=== PATIENT | male | born 1965 | race Caucasian/White ===

== ENCOUNTER 2023-09-25 17:51 | Outpatient (RCR) | payer BC, SELFPAY | END 2023-09-25 23:59 | disposition home or self-care (01) | LOC: RPT 17:51 | PROVIDERS: ATTENDING PHYSICIAN Internal Medicine Gastroenterology; FAMILY PHYSICIAN Physician Assistant Medical | DX: R15.9 Full incontinence of feces (principal); R15.2 Fecal urgency; M62.89 Other specified disorders of muscle; R10.2 Pelvic and perineal pain; Z73.6 Limitation of activities due to disability | CPT/HCPCS: 97163; 97530 ==

== ENCOUNTER → 2023-10-03 09:36 | Outpatient (REF) | payer BC, SELFPAY | LOC: HWRAD 09:36 | PROVIDERS: ATTENDING PHYSICIAN Nurse Practitioner Adult Health; FAMILY PHYSICIAN Physician Assistant Medical | DX: C20 Malignant neoplasm of rectum (principal); R93.2 Abnormal findings on diagnostic imaging of liver and biliary tract | CPT/HCPCS: 71270; 74178; Q9967 ==

== ENCOUNTER 2023-10-25 07:47 | Outpatient (RCR) | payer BC, SELFPAY | END 2023-10-25 23:59 | disposition home or self-care (01) | LOC: RPT 07:47 | PROVIDERS: ATTENDING PHYSICIAN Internal Medicine Gastroenterology; FAMILY PHYSICIAN Physician Assistant Medical | DX: R15.9 Full incontinence of feces (principal); R15.2 Fecal urgency; M62.89 Other specified disorders of muscle; R10.2 Pelvic and perineal pain; Z73.6 Limitation of activities due to disability; C20 Malignant neoplasm of rectum; Z98.0 Intestinal bypass and anastomosis status | CPT/HCPCS: 97110; 97140; 97530 ==

== ENCOUNTER 2023-10-28 06:09 | Day surgery (SDC) | payer BC, SELFPAY ==
[2023-10-17 13:04] VITALS: BMI 26.8
[2023-10-17 14:20] LABS: INR 0.94; PT 12.6 Sec (11.4-14.6)
[2023-10-28] VITALS (8 sets, daily range): BP systolic 117–132; BP diastolic 74–93; BMI 26.5
[2023-10-28 07:03] LABS: Glucose - Point of Care 188 mg/dl (70-99)
[2023-10-28 09:44] LABS: Glucose - Point of Care 201 mg/dl (70-99)
== END 2023-10-28 10:59 | disposition home or self-care (01) ==
LOC: SDS 06:09
PROVIDERS: ATTENDING PHYSICIAN Internal Medicine Critical Care Medicine; FAMILY PHYSICIAN Physician Assistant Medical; OTHER PHYSICIAN Internal Medicine Cardiovascular Disease; OTHER PHYSICIAN Internal Medicine Hematology & Oncology
DX: C78.02 Secondary malignant neoplasm of left lung (principal); C78.01 Secondary malignant neoplasm of right lung; C19 Malignant neoplasm of rectosigmoid junction; R59.0 Localized enlarged lymph nodes
CPT/HCPCS: 31629; 31628; 31624; 31623; 31627; 31654; 88172; 88173; 88305; 36415; 71045; 76000; 82962; 85610; 85730; 88112; 88177; 88333; 88341; 88342; 94640; C1887

== ENCOUNTER → 2023-11-11 10:19 | Outpatient (REF) | payer BC, SELFPAY ==
[2023-11-11 10:37] VITALS: BP 122/91; BP_SYST 85
[2023-11-11] MEDS: ANCEF 10 IV (11:03)
[2023-11-11 12:20] VITALS: BP 131/90; BP_SYST 76
[2023-11-11 12:35] VITALS: BP 139/89
== END ==
LOC: RADI 10:19
PROVIDERS: ATTENDING PHYSICIAN Internal Medicine Hematology & Oncology; FAMILY PHYSICIAN Physician Assistant Medical
DX: C20 Malignant neoplasm of rectum (principal)
CPT/HCPCS: 36561; 76937; 77001; 99152; 99153

== ENCOUNTER 2023-11-25 07:30 | Outpatient (RCR) | payer BC, SELFPAY | END 2023-11-25 23:59 | disposition home or self-care (01) | LOC: RPT 07:30 | PROVIDERS: ATTENDING PHYSICIAN Internal Medicine Gastroenterology; FAMILY PHYSICIAN Physician Assistant Medical | DX: R15.9 Full incontinence of feces (principal); R15.2 Fecal urgency; M62.89 Other specified disorders of muscle; R10.2 Pelvic and perineal pain; Z73.6 Limitation of activities due to disability | CPT/HCPCS: 97110; 97112; 97140; 97530 ==

== ENCOUNTER → 2023-12-10 15:36 | Outpatient (REF) | payer BC, SELFPAY ==
[2023-12-10 14:52] LABS: % Basophils 0.6 % (0-2); % Eosinophils 4.7 % (0-6); % Immature Granulocytes 0.3 % (0-0.5); % Lymphocytes 40.3 % (20.5-51.1); % Monocytes 15.7 % (1.7-9.3); % Neutrophils 38.4 % (42.2-75.2); Absolute Eosinophils 0.2 10^3/uL (0-0.7); Absolute Lymphocytes 1.5 10^3/uL (1.2-3.4); Absolute Monocytes 0.6 10^3/uL (0.1-0.6); Absolute Neutrophils 1.4 10^3/uL (1.4-6.5); Hemoglobin 15.3 g/dL (13.0-18.0); Mean Corp Hgb Conc. 35.6 g/dL (33.0-37.0); Mean Corpuscular Hgb 30.3 pg (27.0-31.0); Mean Corpuscular Volume 85.1 fL (80.0-94.0); Mean Platelet Volume 8.9 fL (7.4-10.4); Platelet Count 124 10^3/uL (130-400); Red Blood Cell Count 5.05 10^6/uL (4.70-6.10); Red Cell Dist. Width 13.6 % (11.5-14.5); White Blood Cell Count 3.6 10^3/uL (4.8-10.8)
== END ==
LOC: OIDL 15:36
PROVIDERS: ATTENDING PHYSICIAN Internal Medicine Hematology & Oncology
DX: C20 Malignant neoplasm of rectum (principal)
CPT/HCPCS: 85025

== ENCOUNTER → 2023-12-17 09:34 | Outpatient (REF) | payer BC, SELFPAY ==
[2023-12-17 11:06] LABS: Protein/creatinine Ratio 0.1; Urine Protein 7 mg/dl
== END ==
LOC: OIDL 09:34
PROVIDERS: ATTENDING PHYSICIAN Internal Medicine Hematology & Oncology
DX: C20 Malignant neoplasm of rectum (principal)
CPT/HCPCS: 82570; 84156

== ENCOUNTER 2023-12-23 07:47 | Outpatient (RCR) | payer BC, SELFPAY | END 2023-12-23 23:59 | disposition home or self-care (01) | LOC: RPT 07:47 | PROVIDERS: ATTENDING PHYSICIAN Internal Medicine Gastroenterology; FAMILY PHYSICIAN Physician Assistant Medical | DX: R15.9 Full incontinence of feces (principal); R15.2 Fecal urgency; M62.89 Other specified disorders of muscle; R10.2 Pelvic and perineal pain; Z73.6 Limitation of activities due to disability | CPT/HCPCS: 97110; 97140; 97530 ==

== ENCOUNTER 2024-01-31 06:47 | Outpatient (RCR) | payer BC, SELFPAY | END 2024-01-31 23:59 | disposition home or self-care (01) | LOC: RPT 06:47 | PROVIDERS: ATTENDING PHYSICIAN Internal Medicine Gastroenterology; FAMILY PHYSICIAN Physician Assistant Medical | DX: R15.9 Full incontinence of feces (principal); R15.2 Fecal urgency; M62.89 Other specified disorders of muscle; R10.2 Pelvic and perineal pain; Z73.6 Limitation of activities due to disability | CPT/HCPCS: 97110; 97140; 97530 ==

== ENCOUNTER → 2024-02-06 08:12 | Outpatient (REF) | payer BC, SELFPAY | LOC: RCS 08:12 | PROVIDERS: ATTENDING PHYSICIAN Internal Medicine Cardiovascular Disease; FAMILY PHYSICIAN Physician Assistant Medical | DX: I35.0 Nonrheumatic aortic (valve) stenosis (principal) | CPT/HCPCS: 93306 ==

== ENCOUNTER 2024-02-17 07:15 | Outpatient (RCR) | payer BC, SELFPAY | END 2024-02-17 23:59 | disposition home or self-care (01) | LOC: RPT 07:15 | PROVIDERS: ATTENDING PHYSICIAN Internal Medicine Gastroenterology; FAMILY PHYSICIAN Physician Assistant Medical | DX: R15.9 Full incontinence of feces (principal); R15.2 Fecal urgency; M62.89 Other specified disorders of muscle; R10.2 Pelvic and perineal pain; Z73.6 Limitation of activities due to disability | CPT/HCPCS: 97110; 97112; 97140; 97530 ==

== ENCOUNTER → 2024-03-16 14:22 | Outpatient (REF) | payer BC, SELFPAY ==
[2024-03-16 14:39] LABS: % Basophils 0.7 % (0-2); % Eosinophils 4.1 % (0-6); % Immature Granulocytes 0.2 % (0-0.5); % Lymphocytes 33.6 % (20.5-51.1); % Monocytes 11.5 % (1.7-9.3); % Neutrophils 49.9 % (42.2-75.2); Absolute Eosinophils 0.2 10^3/uL (0-0.7); Absolute Lymphocytes 1.5 10^3/uL (1.2-3.4); Absolute Monocytes 0.5 10^3/uL (0.1-0.6); Absolute Neutrophils 2.2 10^3/uL (1.4-6.5); Hematocrit 40.9 % (39.0-52.0); Hemoglobin 14.4 g/dL (13.0-18.0); Mean Corp Hgb Conc. 35.2 g/dL (33.0-37.0); Mean Corpuscular Hgb 31.2 pg (27.0-31.0); Mean Corpuscular Volume 88.5 fL (80.0-94.0); Nucleated Red Blood Cells % 0 % (-); Platelet Count 190 10^3/uL (130-400); Red Blood Cell Count 4.62 10^6/uL (4.70-6.10); Red Cell Dist. Width 12.7 % (11.5-14.5); White Blood Cell Count 4.3 10^3/uL (4.8-10.8)
[2024-03-16 14:56] LABS: ALT (SGPT) 59 U/L (0-50); AST (SGOT) 45 U/L (17-59); Albumin 4.7 g/dl (3.5-5.0); Alkaline Phosphatase 88 U/L (38-126); Blood Urea Nitrogen 16 mg/dl (9-20); Calcium 9.4 mg/dl (8.4-10.2); Carbon Dioxide 26 mmol/L (22-30); Glucose 186 mg/dl (70-99); Total Bilirubin 0.4 mg/dl (0.2-1.3); Total Protein 6.9 g/dl (6.3-8.2); eGFR > 60.00
[2024-03-16 15:04] LABS: Chloride 101 mmol/L (98-107); Potassium 4.2 mmol/L (3.5-5.1); Sodium 139 mmol/L (135-145)
== END ==
LOC: REG 14:22
PROVIDERS: ATTENDING PHYSICIAN Internal Medicine Hematology & Oncology; FAMILY PHYSICIAN Physician Assistant Medical
DX: C20 Malignant neoplasm of rectum (principal); C78.02 Secondary malignant neoplasm of left lung; C78.7 Secondary malignant neoplasm of liver and intrahepatic bile duct; C78.01 Secondary malignant neoplasm of right lung
CPT/HCPCS: 36415; 80053; 85025

== ENCOUNTER 2024-03-23 08:30 | Outpatient (RCR) | payer BC, SELFPAY | END 2024-03-23 10:24 | disposition home or self-care (01) | LOC: RPT 08:30 | PROVIDERS: ATTENDING PHYSICIAN Internal Medicine Gastroenterology; FAMILY PHYSICIAN Physician Assistant Medical | DX: R15.9 Full incontinence of feces (principal); R15.2 Fecal urgency; M62.89 Other specified disorders of muscle; R10.2 Pelvic and perineal pain; Z73.6 Limitation of activities due to disability | CPT/HCPCS: 97110; 97112; 97140; 97530 ==

== ENCOUNTER → 2024-03-30 13:35 | Outpatient (REF) | payer BC, SELFPAY ==
[2024-03-30 13:57] LABS: % Basophils 0.2 % (0-2); % Eosinophils 3.6 % (0-6); % Immature Granulocytes 0.2 % (0-0.5); % Lymphocytes 27.6 % (20.5-51.1); % Monocytes 10.7 % (1.7-9.3); % Neutrophils 57.7 % (42.2-75.2); Absolute Eosinophils 0.2 10^3/uL (0-0.7); Absolute Lymphocytes 1.2 10^3/uL (1.2-3.4); Absolute Monocytes 0.5 10^3/uL (0.1-0.6); Absolute Neutrophils 2.5 10^3/uL (1.4-6.5); Hematocrit 43.1 % (39.0-52.0); Hemoglobin 15.1 g/dL (13.0-18.0); Mean Corpuscular Hgb 31.4 pg (27.0-31.0); Mean Corpuscular Volume 89.6 fL (80.0-94.0); Mean Platelet Volume 9.1 fL (7.4-10.4); Nucleated Red Blood Cells % 0 % (-); Platelet Count 191 10^3/uL (130-400); Red Blood Cell Count 4.81 10^6/uL (4.70-6.10); Red Cell Dist. Width 12.6 % (11.5-14.5); White Blood Cell Count 4.4 10^3/uL (4.8-10.8)
[2024-03-30 14:19] LABS: ALT (SGPT) 66 U/L (0-50); AST (SGOT) 49 U/L (17-59); Albumin 4.8 g/dl (3.5-5.0); Alkaline Phosphatase 89 U/L (38-126); Blood Urea Nitrogen 11 mg/dl (9-20); Calcium 9.6 mg/dl (8.4-10.2); Carbon Dioxide 26 mmol/L (22-30); Chloride 103 mmol/L (98-107); Glucose 91 mg/dl (70-99); Potassium 4.2 mmol/L (3.5-5.1); Sodium 139 mmol/L (135-145); Total Bilirubin 0.4 mg/dl (0.2-1.3); Total Protein 7.2 g/dl (6.3-8.2); eGFR > 60.00
== END ==
LOC: REG 13:35
PROVIDERS: ATTENDING PHYSICIAN Internal Medicine Hematology & Oncology; FAMILY PHYSICIAN Physician Assistant Medical
DX: C20 Malignant neoplasm of rectum (principal); C78.02 Secondary malignant neoplasm of left lung; C78.7 Secondary malignant neoplasm of liver and intrahepatic bile duct; C78.01 Secondary malignant neoplasm of right lung
CPT/HCPCS: 36415; 80053; 85025

== ENCOUNTER → 2024-04-27 11:21 | Outpatient (REF) | payer BC, SELFPAY ==
[2024-04-27 12:00] LABS: % Basophils 0.7 % (0-2); % Eosinophils 3.5 % (0-6); % Immature Granulocytes 0.2 % (0-0.5); % Lymphocytes 24.7 % (20.5-51.1); % Monocytes 10.9 % (1.7-9.3); Absolute Eosinophils 0.2 10^3/uL (0-0.7); Absolute Lymphocytes 1.1 10^3/uL (1.2-3.4); Absolute Monocytes 0.5 10^3/uL (0.1-0.6); Absolute Neutrophils 2.6 10^3/uL (1.4-6.5); Hematocrit 43.9 % (39.0-52.0); Hemoglobin 15.3 g/dL (13.0-18.0); Mean Corp Hgb Conc. 34.9 g/dL (33.0-37.0); Mean Corpuscular Hgb 30.9 pg (27.0-31.0); Mean Corpuscular Volume 88.7 fL (80.0-94.0); Mean Platelet Volume 9.2 fL (7.4-10.4); Nucleated Red Blood Cells % 0 % (-); Platelet Count 182 10^3/uL (130-400); Red Blood Cell Count 4.95 10^6/uL (4.70-6.10); Red Cell Dist. Width 12.6 % (11.5-14.5); White Blood Cell Count 4.3 10^3/uL (4.8-10.8)
[2024-04-27 13:02] LABS: Protein/creatinine Ratio 0.2; Urine Protein 9 mg/dl
[2024-04-27 13:36] LABS: ALT (SGPT) 71 U/L (0-50); AST (SGOT) 54 U/L (17-59); Albumin 4.9 g/dl (3.5-5.0); Alkaline Phosphatase 82 U/L (38-126); Blood Urea Nitrogen 16 mg/dl (9-20); Calcium 9.7 mg/dl (8.4-10.2); Carbon Dioxide 27 mmol/L (22-30); Chloride 100 mmol/L (98-107); Glucose 84 mg/dl (70-99); Potassium 4.5 mmol/L (3.5-5.1); Sodium 140 mmol/L (135-145); Total Bilirubin 0.5 mg/dl (0.2-1.3); Total Protein 7.2 g/dl (6.3-8.2); eGFR > 60.00
== END ==
LOC: REG 11:21
PROVIDERS: ATTENDING PHYSICIAN Internal Medicine Hematology & Oncology; FAMILY PHYSICIAN Physician Assistant Medical
DX: C20 Malignant neoplasm of rectum (principal); C78.02 Secondary malignant neoplasm of left lung; C78.7 Secondary malignant neoplasm of liver and intrahepatic bile duct; C78.01 Secondary malignant neoplasm of right lung
CPT/HCPCS: 36415; 80053; 82570; 84156; 85025

== ENCOUNTER → 2024-06-09 08:20 | Outpatient (REF) | payer BC, SELFPAY | LOC: HWRAD 08:20 | PROVIDERS: ATTENDING PHYSICIAN Internal Medicine Hematology & Oncology; FAMILY PHYSICIAN Physician Assistant Medical | DX: C20 Malignant neoplasm of rectum (principal); C78.02 Secondary malignant neoplasm of left lung; C78.7 Secondary malignant neoplasm of liver and intrahepatic bile duct; C78.01 Secondary malignant neoplasm of right lung | CPT/HCPCS: 71260; 74178; Q9967 ==

== ENCOUNTER → 2024-09-07 07:26 | Outpatient (REF) | payer BC, SELFPAY | LOC: RAD 07:26 | PROVIDERS: ATTENDING PHYSICIAN Internal Medicine Hematology & Oncology; FAMILY PHYSICIAN Physician Assistant Medical; OTHER PHYSICIAN Radiology Radiation Oncology | DX: C20 Malignant neoplasm of rectum (principal); C78.02 Secondary malignant neoplasm of left lung; C78.7 Secondary malignant neoplasm of liver and intrahepatic bile duct; C78.01 Secondary malignant neoplasm of right lung | CPT/HCPCS: 71260; 74178; Q9967 ==

== ENCOUNTER → 2025-05-24 07:28 | Outpatient (REF) | payer BC, SELFPAY ==
[2025-05-24 07:53] LABS: Hematocrit 41.6 % (39.0-52.0); Hemoglobin 14.0 g/dL (13.0-18.0); Mean Corp Hgb Conc. 33.7 g/dL (33.0-37.0); Mean Corpuscular Volume 87.2 fL (80.0-94.0); Nucleated Red Blood Cells % 0 % (-); Platelet Count 187 10^3/uL (130-400); Red Cell Dist. Width 13.4 % (11.5-14.5)
== END ==
LOC: REG 07:28
PROVIDERS: ATTENDING PHYSICIAN Internal Medicine Hematology & Oncology; FAMILY PHYSICIAN Physician Assistant Medical; REFERRING PHYSICIAN Internal Medicine Medical Oncology
DX: C20 Malignant neoplasm of rectum (principal); C78.02 Secondary malignant neoplasm of left lung; C78.7 Secondary malignant neoplasm of liver and intrahepatic bile duct; C78.01 Secondary malignant neoplasm of right lung
CPT/HCPCS: 36415; 85025

== ENCOUNTER → 2025-07-19 10:46 | Outpatient (REF) | payer BC, SELFPAY ==
[2025-07-19 11:32] LABS: ALT (SGPT) 54 U/L (0-50); AST (SGOT) 37 U/L (17-59); Albumin 4.8 g/dl (3.5-5.0); Alkaline Phosphatase 94 U/L (38-126); Blood Urea Nitrogen 19 mg/dl (9-20); Calcium 9.7 mg/dl (8.4-10.2); Carbon Dioxide 30 mmol/L (22-30); Chloride 100 mmol/L (98-107); Glucose 192 mg/dl (70-99); Potassium 4.9 mmol/L (3.5-5.1); Sodium 139 mmol/L (135-145); Total Protein 7.7 g/dl (6.3-8.2); eGFR > 60.00
== END ==
LOC: REG 10:46
PROVIDERS: ATTENDING PHYSICIAN Internal Medicine Hematology & Oncology; FAMILY PHYSICIAN Physician Assistant Medical
DX: C20 Malignant neoplasm of rectum (principal); C78.02 Secondary malignant neoplasm of left lung; C78.7 Secondary malignant neoplasm of liver and intrahepatic bile duct; C78.01 Secondary malignant neoplasm of right lung
CPT/HCPCS: 36415; 80053; 82570; 84156

== ENCOUNTER → 2025-07-30 13:11 | Outpatient (REF) | payer BC, SELFPAY ==
[2025-07-30 13:43] LABS: Hematocrit 45.5 % (39.0-52.0); Hemoglobin 15.0 g/dL (13.0-18.0); Mean Corp Hgb Conc. 33.0 g/dL (33.0-37.0); Mean Corpuscular Volume 88.7 fL (80.0-94.0); Nucleated Red Blood Cells % 0 % (-); Platelet Count 200 10^3/uL (130-400); Red Cell Dist. Width 14.0 % (11.5-14.5)
[2025-07-30 14:01] LABS: Albumin 4.8 g/dl (3.5-5.0); Blood Urea Nitrogen 16 mg/dl (9-20); Calcium 9.7 mg/dl (8.4-10.2); Chloride 102 mmol/L (98-107); Glucose 77 mg/dl (70-99); Potassium 5.0 mmol/L (3.5-5.1); Sodium 138 mmol/L (135-145); Total Protein 7.9 g/dl (6.3-8.2); eGFR > 60.00
[2025-07-30 14:08] LABS: ALT (SGPT) 49 U/L (0-50); AST (SGOT) 39 U/L (17-59); Alkaline Phosphatase 90 U/L (38-126); Carbon Dioxide 29 mmol/L (22-30)
== END ==
LOC: REG 13:11
PROVIDERS: ATTENDING PHYSICIAN Internal Medicine Hematology & Oncology; FAMILY PHYSICIAN Physician Assistant Medical
DX: C20 Malignant neoplasm of rectum (principal); C78.02 Secondary malignant neoplasm of left lung; C78.7 Secondary malignant neoplasm of liver and intrahepatic bile duct; C78.01 Secondary malignant neoplasm of right lung
CPT/HCPCS: 36415; 80053; 82570; 84156; 85025